=== PATIENT | female | born 2005 | race Caucasian/White ===

== ENCOUNTER 2024-02-04 13:17 | Emergency (ER) | payer OTHER ==
[2024-02-04 14:29] VITALS: BP 128/80; PULSE 69; RESP 17; TEMP 98.3; BMI 28.7
[2024-02-04 14:46] LABS: BASO % 0.5 % (0-2.0); EOS % 5.6 % (0-4.5); HEMATOCRIT 33.9 % (32.4-45.2); HEMOGLOBIN 11.1 GM/dL (10.7-15.3); LYMPH % 24.4 % (8-40); MCH 26.8 pg (25.7-33.7); MCHC 32.8 g/dl (32.0-36.0); MEAN CELL VOLUME 81.9 fl (80-96); MEAN PLT VOLUME 7.4 fl (7.5-11.1); MONO % 5.6 % (3.8-10.2); NEUT % 63.9 % (42.8-82.8); PLATELET COUNT 236 10^3/uL (134-434); RBC 4.14 M/mm3 (3.60-5.2); RDW 15.3 % (11.6-15.6); WHITE BLOOD COUNT 6.7 K/mm3 (4.0-10.0)
[2024-02-04 15:03] LABS: POTASSIUM 4.1 mmol/L (3.5-5.1)
[2024-02-04 15:04] LABS: BLOOD UREA NITROGEN 17.3 mg/dL (7-18); CALCIUM 9.1 mg/dL (8.5-10.1)
[2024-02-04 15:06] LABS: ALBUMIN 3.8 g/dl (3.4-5.0)
[2024-02-04 15:07] LABS: CREATININE 0.6 mg/dL (0.55-1.3)
[2024-02-04 15:09] LABS: BILIRUBIN,TOTAL 0.3 mg/dL (0.2-1); TOT PROT 7.3 g/dl (6.4-8.2)
== END 2024-02-04 16:43 | disposition home or self-care (01) ==
LOC: JERFT 13:17
DX: R07.89 Other chest pain (principal)
CPT/HCPCS: 36415; 71045-TC-FY; 80053; 84484; 84703; 85025; 93005; 93010; 99285-25